=== PATIENT | female | born 1945 | race Caucasian/White ===

== ENCOUNTER 2022-12-01 09:03 | Outpatient (CLI) | payer MEDICARE, SELFPAY | END 2022-12-01 09:04 | disposition home or self-care (01) | PROVIDERS: PCP Physician Assistant Medical; Visit Provider Family Medicine | DX: I10 Essential (primary) hypertension (principal); E78.00 Pure hypercholesterolemia, unspecified; R53.83 Other fatigue; R07.89 Other chest pain | CPT/HCPCS: 80048; 80061; 84443; 84460; 84484 ==

== ENCOUNTER 2022-12-05 08:40 | Outpatient (CLI) | payer MEDICARE, SELFPAY ==
--- NOTE | 2022-12-05 09:00 | CRLHL7_ITS ---
For Patients: As a result of the Century Cures Act, medical imaging exams and procedure reports are released immediately into your electronic medical record. You may view this report before your referring provider. If you have questions, please contact your health care provider. [facility] ??? MOBILE IMAGING SERVICES MYOCARDIAL PERFUSION SCAN, 12/05/2022 CLINICAL HISTORY: 77-year-old female. Chest pain. Hypertension. Shortness of breath on exertion. Status post CABG surgery. 154 pounds. TECHNIQUE: (Resting SPECT and stress gated SPECT with wall motion and ejection fraction) Stress: Pharmacologic - Lexiscan (0.4 mg IV) Dose (Stress/Rest): 32.4 mCi/8.01 mCi [id number] (IV) Comparison: None FINDINGS: There is good uptake of activity by the left ventricle. No left ventricular enlargement is noted. There is soft tissue attenuation. There is also an apical septal hot-spot. This causes a normalization artifact in the other myocardial segments. Accounting for these, there is no convincing evidence of significant myocardial ischemia or infarction. The gated images demonstrate a normal left ventricular ejection fraction of approximately 65%. No regional wall motion abnormalities are identified. IMPRESSION: 1) There is no evidence of significant myocardial ischemia or infarction. 2) Normal left ventricular ejection fraction of approximately 65%. KALLIE FIGUEROA M.D. Diagnostic/Nuclear Medicine [email or web address] Transcribed: 3:[address]/Dictated by: Kallie Figueroa MD @ 12/05/2022 12:54:00 PM (Electronically Signed)
[2022-12-05] MEDS: SODIUM CHLORIDE 0.9 % (FLUSH) 10 ML SYRINGE IVF (10:04)
[2022-12-05 11:08] VITALS: BP 150/88; PULSE 105
[2022-12-05] MEDS: REGADENOSON 0.4 MG/5 ML SYRINGE IVP (11:16)
--- NOTE | 2022-12-05 14:25 | W.PM.STED ---
Stress Test Note Date Date Seen: 12/05/22 Date of test: 12/05/22 Providers Primary care provider: Celeste Larson Stress test physician: Mark Rodriguez Stress Test Note Stress test ordered: Lexiscan Indication for test: chest pain Stress test medicine: Lexiscan Results discussion: Patient presents for Lexiscan, after discussion the risks benefits side effects she would like to proceed, pre test EKG shows normal sinus rhythm, with a heart rate of 78, blood pressure 163 and 94, no acute ST wave changes noted, cardiac stress test medical history form is reviewed, standard protocol is using Lexiscan over a 5 minute period of monitoring is done. Patient had really nonspecific complaints, maximum blood pressure was 183 and 99, no acute chest pain. She had no specific ST wave changes suggestive ischemia, there is no dysrhythmias Impression: Negative electrographic portion of Lexiscan Follow up suggested: Await nuclear images these will be jointly read by Cardiology and nuclear Medicine, clinical correlation with these will be needed. Patient left this testing facility in excellent condition.
== END 2022-12-05 08:41 | disposition home or self-care (01) ==
LOC: STRESS 08:41
PROVIDERS: PCP Physician Assistant Medical; Visit Provider Family Medicine
DX: R07.89 Other chest pain (principal); I10 Essential (primary) hypertension; R06.02 Shortness of breath
CPT/HCPCS: 78452; 93016; 93017; A9500; J2785

== ENCOUNTER 2024-03-05 11:14 | Outpatient (CLI) | payer MEDICARE, SELFPAY | END 2024-03-05 11:15 | disposition home or self-care (01) | LOC: NFLDREF 03-07 08:43 | PROVIDERS: PCP Physician Assistant Medical; Referring Provider Physician Assistant Medical; Visit Provider Physician Assistant Medical | DX: R30.0 Dysuria (principal); N30.00 Acute cystitis without hematuria; I10 Essential (primary) hypertension; H61.23 Impacted cerumen, bilateral; N30.01 Acute cystitis with hematuria | CPT/HCPCS: 87086; 87186 ==

== ENCOUNTER 2024-03-27 09:51 | Outpatient (CLI) | payer MEDICARE, SELFPAY | END 2024-03-27 09:52 | disposition home or self-care (01) | PROVIDERS: PCP Physician Assistant Medical; Visit Provider Physician Assistant Medical | DX: E78.2 Mixed hyperlipidemia (principal); I10 Essential (primary) hypertension; N30.00 Acute cystitis without hematuria; B96.1 Klebsiella pneumoniae [K. pneumoniae] as the cause of diseases classified elsewhere; Z13.29 Encounter for screening for other suspected endocrine disorder | CPT/HCPCS: 80053; 80061; 84443; 87086; 87186 ==

== ENCOUNTER 2024-04-10 14:24 | Outpatient (CLI) | payer MEDICARE, SELFPAY ==
--- NOTE | 2024-04-10 14:30 | CRLHL7_ITS ---
For Patients: As a result of the Century Cures Act, medical imaging exams and procedure reports are released immediately into your electronic medical record. You may view this report before your referring provider. If you have questions, please contact your health care provider. DXA BONE MINERAL DENSITY STUDY Current height (in): 64. Weight (lb): 142. Menopause age: 51. Ethnicity: White. 1. Have you had a previous hip or vertebral fracture? No. 2. Have you had any fractures during your adult life which did not result from significant trauma (e.g., auto accident)? No. 3. Did either of your parents have a hip fracture? No. 4. Do you smoke? No. 5. Have you ever taken Glucocorticoids? No. 6. Do you have rheumatoid arthritis? No. 7. Do you have secondary osteoporosis? No. 8. Do you drink 3 or more alcoholic drinks per day? No. 9. Are you being treated for osteoporosis? No. 10. Have you ever taken any of the following medications: Actonel, Evista, Fosamax, Miacalcin, Reclast, Boniva, Forteo, HRT (i.e. estrogen/hormone therapy), Protelos, Prolia, Vitamin D, Calcium, other ??? please specify. ANSWER: Yes, HRT. 11. Do you have any of the following medical conditions: Anorexia or bulimia, asthma or emphysema, end stage renal disease, hyperparathyroidism, any seizure disorders, cancer, inflammatory bowel diseases, hysterectomy, other ??? please specify. ANSWER: Yes, cancer. 12. What was your maximum height (inches)? 64. 13. Do you perform weight bearing exercise regularly? No. 14. Do you regularly consume dairy products? No. 15. Do you drink caffeinated beverages? Yes. 16. At what age did your period start? 14. 17. Are you premenopausal? No. 18. How many full term pregnancies have you had? 2. 19. Have you ever missed your period for more than 6 months in a row (not including or menopause)? No. TECHNIQUE: Bone mineral density study was performed using the [employer]. FINDINGS: The results of the study expressed as bone mineral density (BMD) are as follows: Lumbar spine L1 to L4: BMD: 0.805 g/cm2. T-score: -2.2. Z-score: 0.4. Neck Right: BMD: 0.446 g/cm2. T-score: -3.6. Z-score: -1.4. Total Right: BMD: 0.666 g/cm2. T-score: -2.3. Z-score: -0.3. Radius Left 33%: BMD: 0.474 g/cm2. T-score: -3.7. Z-score: -0.8. IMPRESSION: Osteoporosis. *Comparison exams done prior to 01/2020 were performed on different unit, [facility]. COMPARISON: Compared with scan of 12/08/2013, the bone mineral density has decreased by 8.3 percent at the spine and decreased by 2.1 percent at the hip. Compared with scan of 12/09/2012, the bone mineral density has increased by 0.3 percent at the spine and decreased by 4.6 percent at the hip. Yaron Brown M.D. Diagnostic Radiologist [email or web address] JANINE/Dictated by: Yaron Brown MD @ 04/11/2024 1:21:00 PM (Electronically Signed)
== END 2024-04-10 14:25 | disposition home or self-care (01) ==
PROVIDERS: PCP Physician Assistant Medical; Visit Provider Physician Assistant Medical
DX: M81.0 Age-related osteoporosis without current pathological fracture (principal)
CPT/HCPCS: 77080

== ENCOUNTER 2024-07-10 08:30 | Outpatient (CLI) | payer MEDICARE, SELFPAY ==
--- NOTE | 2024-07-10 09:33 | P.ANES_ITS ---
Anesthesia Charges Start Date/Time Anesthesia Start Date: 07/10/24 Anesthesia Start Time: 09:42 Stop Date/Time Anesthesia Stop Date: 07/10/24 Anesthesia Stop Time: 10:00 Summary Extremes of Age - Over 70 or under 1: STRUCTURAL ARCHITECT
--- NOTE | 2024-07-10 10:31 | W.ANESCHARGE ---
Anesthesia Charges Start Date/Time Anesthesia Start Date: 07/10/24 Anesthesia Start Time: 09:42 Stop Date/Time Anesthesia Stop Date: 07/10/24 Anesthesia Stop Time: 10:00 Summary Extremes of Age - Over 70 or under 1: MDA
== END 2024-07-10 08:31 | disposition home or self-care (01) ==
PROVIDERS: PCP Physician Assistant Medical; Visit Provider Internal Medicine
DX: Z12.11 Encounter for screening for malignant neoplasm of colon (principal); K57.30 Diverticulosis of large intestine without perforation or abscess without bleeding; Z86.0100 Personal history of colon polyps, unspecified
CPT/HCPCS: 00812; 45378; 99100; J2250; J2704

== ENCOUNTER 2024-09-02 10:10 | Outpatient (CLI) | payer MEDICARE, SELFPAY | END 2024-09-02 10:11 | disposition home or self-care (01) | LOC: NFLDREF 09-09 04:39 | PROVIDERS: PCP Physician Assistant Medical; Referring Provider Physician Assistant Medical; Visit Provider Physician Assistant Medical | DX: E78.2 Mixed hyperlipidemia (principal); N30.00 Acute cystitis without hematuria; B96.1 Klebsiella pneumoniae [K. pneumoniae] as the cause of diseases classified elsewhere | CPT/HCPCS: 80061; 84450; 84460; 87086; 87186 ==

== ENCOUNTER 2024-11-04 14:21 | Outpatient (CLI) | payer MEDICARE, SELFPAY | END 2024-11-04 14:22 | disposition home or self-care (01) | LOC: NFLDREF 11-07 02:49 | PROVIDERS: PCP Physician Assistant Medical; Referring Provider Physician Assistant Medical; Visit Provider Physician Assistant Medical | DX: N39.0 Urinary tract infection, site not specified (principal) | CPT/HCPCS: 87086 ==

== ENCOUNTER 2024-12-05 10:35 | Outpatient (CLI) | payer MEDICARE, SELFPAY | END 2024-12-05 10:36 | disposition home or self-care (01) | LOC: NFLDREF 12-09 17:59 | PROVIDERS: PCP Physician Assistant Medical; Referring Provider Physician Assistant Medical; Visit Provider Family Medicine | DX: R35.0 Frequency of micturition (principal); N39.0 Urinary tract infection, site not specified | CPT/HCPCS: 87086 ==

== ENCOUNTER 2025-06-11 08:51 | Outpatient (CLI) | payer MEDICARE, SELFPAY | END 2025-06-11 08:52 | disposition home or self-care (01) | LOC: NFLDREF 06-13 17:46 | PROVIDERS: PCP Physician Assistant Medical; Referring Provider Physician Assistant Medical; Visit Provider Physician Assistant Medical | DX: I10 Essential (primary) hypertension (principal); E78.2 Mixed hyperlipidemia | CPT/HCPCS: 80053; 80061; 84443 ==